=== PATIENT | female | born 1960 | race American Indian/Alaskan Native ===

== ENCOUNTER 2020-12-14 09:05 | Outpatient (CLI) | payer OTHER ==
--- NOTE | 2020-12-14 10:03 | Mammography Report ---
DIGITAL SCREENING MAMMOGRAM WITH CAD, 12/14/2020 CLINICAL INFORMATION / INDICATION: Routine screening mammography. SCREENING MAMMO TECHNIQUE: Digital bilateral 2D mammography was obtained in the craniocaudal and mediolateral obliqu e projections. This examination was interpreted with the benefit of Computer-Aided Detection analysis . COMPARISON: 08/09/2010 through 11/10/2019. FINDINGS: Breast Density: The breasts are heterogeneously dense, which may obscure small masses. No dominant mass, suspicious calcifications, or architectural distortion in either breast. There is a right biopsy clip. No new abnormality is seen. IMPRESSION: No mammographic evidence of malignancy. Follow up recommendation: Routine yearly BI-RADS Category 2: Benign. A "normal" or negative report should not discourage follow up or biopsy of a clinically significant f inding. A written summary of these findings will be mailed to the patient. The patient will be entered into a mammography reporting system which will generate a reminder letter for the patient's next appointmen t at the appropriate interval. The [employer] recommends yearly mammograms starting at age 40 and continuing as l beau as a woman is in good health. Breast MRI is recommended for women with an approximate 20-25% or greater lifetime risk of breast cancer, including women with a strong family history of breast or ova dennis cancer or who have been treated for Hodgkin's disease. Signer Name: Omari Pollard MD Signed: 12/14/2020 9:59 AM Workstation Name: [id number]
== END 2020-12-14 09:06 | disposition home or self-care (01) ==
LOC: SPVWC 09:05
PROVIDERS: ATTEND Surgery
DX: Z12.31 Encounter for screening mammogram for malignant neoplasm of breast (principal)
CPT/HCPCS: 77067

== ENCOUNTER 2022-02-26 10:07 | Outpatient (CLI) | payer OTHER ==
--- NOTE | 2022-02-28 09:18 | Mammography Report ---
DIGITAL SCREENING MAMMOGRAM WITH CAD, 02/26/2022 CLINICAL INFORMATION / INDICATION: Routine screening mammography. TECHNIQUE: Digital bilateral 2D mammography was obtained in the craniocaudal and mediolateral obliqu e projections. This examination was interpreted with the benefit of Computer-Aided Detection analysis . COMPARISON: Prior mammogram 12/14/2020 and 11/10/2019 FINDINGS: Breast Density: There are scattered areas of fibroglandular density. No dominant mass, suspicious calcifications, or architectural distortion in the left breast. There is a stable biopsy clip in the 12:00 position of the right breast. There is a new/increasing 1. 6 cm obscured oval mass seen in the 9 to 10:00 position of the right breast located approximately 11 cm from the nipple which requires further evaluation. IMPRESSION: 1. An oval mass in the right breast requires further evaluation with targeted ultrasound and addition al views if needed. Follow up recommendation: Ultrasound BI-RADS Category 0: INCOMPLETE. Needs additional imaging evaluation and/or prior mammograms for triston brady. A "normal" or negative report should not discourage follow up or biopsy of a clinically significant f inding. A written summary of these findings will be mailed to the patient. The patient will be entered into a mammography reporting system which will generate a reminder letter for the patient's next appointmen t at the appropriate interval. The [employer] recommends yearly mammograms starting at age 40 and continuing as l beau as a woman is in good health. Breast MRI is recommended for women with an approximate 20-25% or greater lifetime risk of breast cancer, including women with a strong family history of breast or ova dennis cancer or who have been treated for Hodgkin's disease. Signer Name: Mdeina Kim MD Signed: 02/28/2022 9:14 AM Workstation Name: [id number]
== END 2022-02-26 10:08 | disposition home or self-care (01) ==
LOC: SPVWC 10:07
PROVIDERS: ATTEND Family Medicine
DX: Z12.31 Encounter for screening mammogram for malignant neoplasm of breast (principal); N64.89 Other specified disorders of breast
CPT/HCPCS: 77067

== ENCOUNTER 2022-03-19 09:39 | Outpatient (CLI) | payer OTHER ==
--- NOTE | 2022-03-19 11:09 | Ultrasound Report ---
ULTRASOUND BREAST RIGHT LIMITED, 03/19/2022 CLINICAL INFORMATION / INDICATION: Callback from screening. TECHNIQUE: Targeted ultrasound evaluation was performed of the area of interest. COMPARISON: Screening mammogram dated 02/26/2022 FINDINGS: Sonographic evaluation of the right breast was targeted to the 9:30 position, 11 cm from the nipple. Static images and cine clips were submitted. A 1.6 cm lobulated, hypoechoic, solid mass is noted liv esponding to the area of mammographic concern. The appearance is suggestive of a lymph node, however, mild cortical thickening measuring 6 mm is noted. IMPRESSION: Further evaluation with spot compression views of the mass in the right breast recommende d. Follow up recommendation: Special View: Spot Compression BI-RADS Category 0: INCOMPLETE. Needs additional imaging evaluation and/or prior mammograms for triston brady. A normal or "negative" report should not preclude biopsy or follow-up of a clinically suspicious find ing. Signer Name: Tanna Garcia MD, Ph.D Signed: 03/19/2022 11:04 AM Workstation Name: [id number]
== END 2022-03-19 09:40 | disposition home or self-care (01) ==
LOC: US 09:39
PROVIDERS: ATTEND Family Medicine
DX: N63.10 Unspecified lump in the right breast, unspecified quadrant (principal); R92.8 Other abnormal and inconclusive findings on diagnostic imaging of breast

== ENCOUNTER 2022-04-04 08:57 | Outpatient (CLI) | payer OTHER ==
--- NOTE | 2022-04-04 10:16 | Mammography Report ---
DIGITAL DIAGNOSTIC MAMMOGRAM WITH CAD CONVENTIONAL, 04/04/2022 CLINICAL INFORMATION / INDICATION: ABNORMAL MAMMOGRAM R92.2 TECHNIQUE: Digital right mammographic imaging was performed. Spot compression views were obtained. This examination was interpreted with the benefit of Computer-aided Detection analysis. COMPARISON: Bilateral mammography 12/14/2020 and 02/26/2022. Right breast ultrasound 03/19/22. FINDINGS: Breast Density: The breasts are heterogeneously dense, which may obscure small masses. There is a persistent circumscribed oval nodule in the right lower outer quadrant in the middle to po sterior depth. The nodule measures up to 2 cm in greatest dimension. There is a questionable fatty hi william, but I cannot be certain due to overlying fibroglandular tissue. Recent ultrasound demonstrated a corresponding 1.8 cm hypoechoic lobulated solid nodule. The findings could be related to an intramammary lymph node on ultrasound, however there is significant cortical thickening on ultrasound and the nodule has increased in size since the prior mammogram. No other abn ormality is seen. IMPRESSION: Persistent nodule in the right lower outer quadrant may represent a intramammary lymph no de but I cannot be certain on spot compression views. Recent ultrasound demonstrated a possible lymph node with cortical thickening. The nodule has also increased in size since the prior study. Biopsy i s recommended. Follow up recommendation: Biopsy BI-RADS Category 4: SUSPICIOUS FOR MALIGNANCY. A "normal" or negative report should not discourage follow up or biopsy of a clinically significant f inding. A written summary of these findings will be mailed to the patient. The patient will be entered into a mammography reporting system which will generate a reminder letter for the patient's next appointmen t at the appropriate interval. According to the [employer], yearly mammograms are recommended starting at age 40 and continuing as long as a woman is in good health. Breast MRI is recommended for women with an davidson roximately 20-25% or greater lifetime risk of breast cancer, including women with a strong family his tory of breast or ovarian cancer and women who have been treated for Hodgkin's disease. Signer Name: Omari Pollard MD Signed: 04/04/2022 10:12 AM Workstation Name: [id number]
== END 2022-04-04 08:58 | disposition home or self-care (01) ==
LOC: MAMMO 08:57
PROVIDERS: ATTEND Family Medicine
DX: R92.2 Inconclusive mammogram (principal)